=== PATIENT | female | born 1990 | race Caucasian/White ===

== ENCOUNTER 2019-10-09 06:16 | Inpatient (IN) | payer OTHER ==
[~2019-10-09] VITALS: Ht 340.4 cm; Wt 79.4 kg
[2019-10-09] MEDS ORDERED: SYNTHROID50 MCG PO (06:21)
[2019-10-09] MEDS ORDERED: PRENATAL TABLE1 EACH PO (06:21)
== END 2019-10-11 11:21 | disposition home or self-care (01) | DRG 807 ==
LOC: LDR 06:16 → OB/GYN 15:57
PROVIDERS: ADMIT Obstetrics & Gynecology; ATTEND Obstetrics & Gynecology
PROC: 10E0XZZ Delivery of Products of Conception, External Approach (ICD-10-PCS; principal; 2019-10-09)
PROC: 0KQM0ZZ Repair Perineum Muscle, Open Approach (ICD-10-PCS; 2019-10-09)
PROC: 10907ZC Drainage of Amniotic Fluid, Therapeutic from Products of Conception, Via Natural or Artificial Opening (ICD-10-PCS; 2019-10-09)
PROC: 4A1HXCZ Monitoring of Products of Conception, Cardiac Rate, External Approach (ICD-10-PCS; 2019-10-09)
DX: O70.1 Second degree perineal laceration during delivery (principal); Z37.0 Single live birth; Z3A.39 39 weeks gestation of pregnancy